=== PATIENT | male | born 2000 | race African-American/Black ===

== ENCOUNTER 2022-01-02 16:32 | Emergency (ER) | payer OTHER ==
[~2022-01-02] VITALS: Ht 182.9 cm; Wt 93.0 kg
--- NOTE | 2022-01-02 16:32 | NUR ---
blood stain noted after wiping the rectal area
--- NOTE | 2022-01-02 17:15 | NUR ---
Patient discharged to home in stable condition. Written and verbal after care instructions given. Patient verbalizes understanding of instruction.
[2022-01-02 17:18] VITALS: BP 138/77
== END 2022-01-02 17:18 | disposition home or self-care (01) ==
LOC: ER 16:34
DX: R19.5 Other fecal abnormalities (principal)